=== PATIENT | male | born 1945 | race Caucasian/White ===

== ENCOUNTER 2019-06-06 15:40 | Emergency (ER) | payer MEDICARE, OTHER, SELFPAY ==
[2019-06-06 16:00] VITALS: BP 135/67; PULSE 56; RESP 18; TEMP 36.2; O2SAT 98; BMI 25.8
[2019-06-06] MEDS: DOXYCYCLINE HYCLATE 100 MG TABLET PO (18:06)
[2019-06-06 18:07] VITALS: PULSE 60; RESP 16; O2SAT 97
[2019-06-06] MEDS: TRAMADOL 50 MG PREPACK 1 BOTTLE MISC (18:07)
--- NOTE | 2019-06-06 19:22 | ED_ITS ---
HPI - Wound/Laceration General Chief Complaint: Wound/Laceration Stated Complaint: laceration to left hand Time Seen by Provider: 06/06/19 17:52 Source: patient Mode of arrival: ambulatory Limitations: no limitations History of Present Illness HPI narrative: 73-year-old male comes emergency department with complaint of puncture wound to his left hand. Patient states he was on the 03 of June, he was picking up a glass and had a puncture wound to the palm of his hand. He states that he let it bleed a bunch. He did not wash it right away but has been washing his hands and taking showers daily since. He states he put a little bit of liquid Band-Aid on it but it opened back up. It had a little bit of clearish drainage. He states he has had a little bit increased pain he feels like it is little bit red and that it might be infected. No fevers, no other symptoms. He can flex straighten his hand without issue. Patient states his tetanus is up-to-date as of 2 years ago. He denies any other injuries. Related Data Previous Rx's Medication Instructions Recorded doxycycline hyclate 100 mg PO BID #20 cap 06/06/19 Allergies Allergy/AdvReac Type Severity Reaction Status Date / Time NSAIDS (Non-Steroidal AdvReac Verified 06/06/19 16:06 Anti-Inflamma Imidazole Antifungal Allergy Unknown Uncoded 06/06/19 16:05 Metronidazole Allergy Unknown Uncoded 06/06/19 16:05 Penicillin Allergy Unknown Uncoded 06/06/19 16:05 Review of Systems Review of Systems ROS Unobtainable: All systems reviewed & are unremarkable except as noted in HPI and below Constitutional Denies chills, Denies fever(s), Denies lethargy and Denies weakness Musculoskeletal Denies tingling and Reports other (Cut to left hand) Integumentary/Breasts Reports erythema, Denies unusual bruising and Reports wounds Neurologic Denies focal weakness, Denies tingling, Denies paresthesias and Denies weakness [facility] Social History Smoking Status: Former smoker Social History Smoking Status: Former smoker Exam Narrative Exam Narrative: GENERAL: Alert and oriented x three, well-nourished, well- appearing male in no acute distress. HEENT: Head normocephalic, atraumatic, EOMI, pupils reactive, face symmetric, moist mucous membranes NECK: Supple, full range of motion EXTREMITIES: Normal range of motion, no clubbing or edema. Neurovascularly intact. Patient has a puncture wound that is about a 0.5 cm on the palm of his hand over the proximal palm just adjacent to the 2nd finger. There is some slight erythema, there is no drainage. Area is very slightly tender to touch. He has full range of motion of his finger, no sausage digit. No issues with flexion or extension. He has full strength. 2+ radial pulse. Cap refills less than 2 seconds. Laceration is very superficial no evidence of foreign body. NEUROLOGICAL: Cranial nerves II through XII grossly intact. Moving all extremities SKIN: Warm, dry, no petechiae, no rashes or lesions other than above Initial Vital Signs Initial Vital Signs: Vital Signs Temperature 97.1 F L 06/06/19 16:00 Pulse Rate 56 L 06/06/19 16:00 Respiratory Rate 18 06/06/19 16:00 Blood Pressure 135/67 06/06/19 16:00 Pulse Oximetry 98 06/06/19 16:00 Course Orders Ordered: Discontinued Medications Doxycycline Hyclate (Vibramycin) 100 mg PO NOW ONE Stop: 06/06/19 17:53 Last Admin: 06/06/19 18:06 Dose: 100 mg Tramadol HCl (Ultram 50mg Prepack) 1 bottle MISC SEEINSTR ONE Stop: 06/06/19 17:54 Last Admin: 06/06/19 18:07 Dose: 1 bottle Vital Signs - 8 hr 06/06/19 16:00 06/06/19 18:07 Temperature 97.1 F L Pulse Rate 56 L 60 Respiratory Rate 18 16 Blood Pressure 135/67 Pulse Oximetry 98 97 Discharge Plan Departure Patient Disposition: Home Clinical Impression: Puncture wound of hand Discharge Date/Time: 06/06/19 18:11 Interventions: ED Discharge Assessment Last Done: 06/06/19 18:07 Instructions: DI for Puncture Wound Activity Restrictions/Additional Instructions: Follow-up with your physician in the next 3-5 days if your symptoms are not improving. Take antibiotics daily until they are gone. You may continue with Tylenol and/or ibuprofen as needed for pain. You may take Ultram once every 4 hours as needed, this medication can make you sleepy do not drive, perform hazards activities or make any major decisions while taking it. Wound Care: Keep wound(s) clean and dry. Wash daily with soap and water only. Do not use over the counter products (alcohol or peroxide)on the wounds unless instructed by a physician. If wound condition worsens (increased/expanding redness, developing fluid blisters, or worsening pain), either contact your doctor for an urgent re- assessment , or return to the Emergency Department. Return to the Emergency Department for any new or worsening symptoms. Return if fever greater than 100.4 Fahrenheit, increased swelling, increasing pain or worsening symptoms such as increased discharge or spreading redness. If you are unable to flex or straighten her finger, if her fingers become very swollen or you have other new swelling, redness of the hand or other new or concerning changes. Prescriptions: New doxycycline hyclate 100 mg capsule 100 mg PO BID Qty: 20 RF: 0 Referrals: Koby Pittman MD [Primary Care Provider] -
== END 2019-06-06 18:11 | disposition home or self-care (01) ==
PROVIDERS: Emergency Provider Emergency Medicine; PCP Family Medicine
DX: S61.412A Laceration without foreign body of left hand, initial encounter (principal); W25.XXXA Contact with sharp glass, initial encounter
CPT/HCPCS: 99283

== ENCOUNTER → 2019-11-03 10:39 | Outpatient (CLI) | payer MEDICARE, OTHER, SELFPAY ==
[2019-11-03 11:44] LABS: Blood Urea Nitrogen 19 mg/dL (9-20); Calcium 9.4 mg/dL (8.4-10.2); Carbon Dioxide 26 mmol/L (22-32); Chloride 104 mmol/L (98-107); Cholesterol 98 mg/dL (140-199); Estimated Glomerular Filt Rate > 60.0 mL/min (>60); Glucose 96 mg/dL (80-110); HDL Cholesterol 34 mg/dL (40-60); HEMOLYSIS < 15 (0-50); LDL Cholesterol Calculated 20 mg/dL (<100); Potassium 4.6 mmol/L (3.4-5.1); Sodium 139 mmol/L (137-145); Triglycerides 218 mg/dL (35-150)
[2019-11-03 11:47] LABS: C-Reactive Protein Quant < 0.5 mg/dL (<1.0)
[2019-11-03 11:55] LABS: Vitamin D 25 Hydroxy (D3) 32.8 ng/mL (30.0-100.0)
== END ==
PROVIDERS: PCP Family Medicine; Visit Provider Student in an Organized Health Care Education/Training Program
DX: E78.2 Mixed hyperlipidemia (principal); E55.9 Vitamin D deficiency, unspecified; K50.90 Crohn's disease, unspecified, without complications; E26.9 Hyperaldosteronism, unspecified; Z87.448 Personal history of other diseases of urinary system
CPT/HCPCS: 36415; 80048; 80061; 82306; 86140

== ENCOUNTER → 2020-01-25 11:02 | Outpatient (CLI) | payer MEDICARE, OTHER, SELFPAY ==
[2020-01-25 12:45] LABS: Cholesterol 109 mg/dL (140-199); HDL Cholesterol 34 mg/dL (40-60); LDL Cholesterol Calculated 21 mg/dL (<100); Triglycerides 269 mg/dL (35-150)
== END ==
PROVIDERS: PCP Student in an Organized Health Care Education/Training Program; Referring Provider Student in an Organized Health Care Education/Training Program; Visit Provider Student in an Organized Health Care Education/Training Program
DX: E78.2 Mixed hyperlipidemia (principal)
CPT/HCPCS: 36415; 80061

== ENCOUNTER → 2020-03-23 11:42 | Outpatient (CLI) | payer MEDICARE, OTHER, SELFPAY ==
[2020-03-23 13:19] LABS: BUN Creatinine Ratio 17.7 (6-22); Blood Urea Nitrogen 20 mg/dL (9-20); Calcium 9.3 mg/dL (8.4-10.2); Carbon Dioxide 22 mmol/L (22-32); Chloride 108 mmol/L (98-107); Cholesterol 86 mg/dL (140-199); Estimated Glomerular Filt Rate > 60.0 mL/min (>60); Glucose 97 mg/dL (80-110); HDL Cholesterol 31 mg/dL (40-60); HEMOLYSIS < 15 (0-50); LDL Cholesterol Calculated 18 mg/dL (<100); Potassium 4.5 mmol/L (3.4-5.1); Sodium 139 mmol/L (137-145); Triglycerides 185 mg/dL (35-150)
== END ==
PROVIDERS: PCP Student in an Organized Health Care Education/Training Program; Referring Provider Student in an Organized Health Care Education/Training Program; Visit Provider Student in an Organized Health Care Education/Training Program
DX: I10 Essential (primary) hypertension (principal); E78.2 Mixed hyperlipidemia
CPT/HCPCS: 36415; 80048; 80061

== ENCOUNTER → 2021-02-14 09:37 | Outpatient (CLI) | payer MEDICARE, OTHER, SELFPAY ==
[2021-02-14 10:26] LABS: Hematocrit 41.1 % (41-53); Hemoglobin 13.9 g/dL (13.5-17.5); Mean Corpuscular HGB Conc 33.9 % (30-36); Mean Corpuscular Hemoglobin 32.8 PG (26-34); Mean Corpuscular Volume 96.7 fL (80-100); Platelet Count 151 X10^3/uL (150-400); Red Blood Cell Count 4.24 X10^6/uL (4.5-5.9); Red Cell Distribution Width 13.7 % (11.6-14.8); White Blood Cell Count 6.4 X10^3/uL (4.5-11.0)
[2021-02-14 10:44] LABS: BUN Creatinine Ratio 21.8 (6-22); Blood Urea Nitrogen 26 mg/dL (9-20); Calcium 9.4 mg/dL (8.4-10.2); Carbon Dioxide 25 mmol/L (22-32); Chloride 105 mmol/L (98-107); Estimated Glomerular Filt Rate 59.3 mL/min (>60); Glucose 105 mg/dL (80-110); HEMOLYSIS < 15 (0-50); Sodium 137 mmol/L (137-145)
[2021-02-14 10:46] LABS: Potassium 5.4 mmol/L (3.4-5.1)
[2021-02-14 11:08] LABS: HEMOLYSIS < 15 (0-50); Iron 93 ug/dL (49-181)
[2021-02-14 11:19] LABS: Percent Iron Saturation 26 % (20-50); Total Iron Binding Capacity 358 ug/dL (261-462); Transferrin 294 mg/dL (206-381)
[2021-02-14 11:20] LABS: Ferritin 69 ng/mL (18-464)
[2021-02-14 11:34] LABS: Vitamin B12 544 pg/mL (239-931)
== END ==
PROVIDERS: PCP Student in an Organized Health Care Education/Training Program; Referring Provider Student in an Organized Health Care Education/Training Program; Visit Provider Student in an Organized Health Care Education/Training Program
DX: E55.9 Vitamin D deficiency, unspecified (principal); K50.90 Crohn's disease, unspecified, without complications; I10 Essential (primary) hypertension
CPT/HCPCS: 36415; 80048; 82306; 82607; 82728; 83540; 83550; 85027

== ENCOUNTER → 2021-03-02 08:54 | Outpatient (CLI) | payer MEDICARE, OTHER, SELFPAY ==
--- NOTE | 2021-03-02 08:56 | DI.US.S_ITS ---
PROCEDURE: US ABD AORTA ANEURYSM SCREEN INDICATIONS: AAA SCREEN TECHNIQUE: Real time scanning was performed of the aorta and iliac arteries, with image documentation. COMPARISON: MR, L-SPINE WITHOUT CONTRAST, 06/10/2012, 19:30. FINDINGS: Aorta: Proximal aortic diameter measures 2.3 cm. Mid-aorta measures 2.1 cm. Distal aortic diameter is 1.7 cm. Iliac arteries: Right common iliac artery measures 1.1 cm. Left common iliac artery measures 0.8 cm. IMPRESSION: No abdominal aortic aneurysm. Dictated by: Adeel Whitley M.D. on 03/02/2021 at 10:16 Approved by: Adeel Whitley M.D. on 03/02/2021 at 10:18
== END ==
PROVIDERS: PCP Student in an Organized Health Care Education/Training Program; Referring Provider Student in an Organized Health Care Education/Training Program; Visit Provider Student in an Organized Health Care Education/Training Program
DX: Z13.6 Encounter for screening for cardiovascular disorders (principal); Z87.891 Personal history of nicotine dependence
CPT/HCPCS: 76706

== ENCOUNTER → 2021-03-23 09:22 | Outpatient (CLI) | payer MEDICARE, OTHER, SELFPAY ==
[2021-03-23 10:39] LABS: BUN Creatinine Ratio 19.8 (6-22); Blood Urea Nitrogen 21 mg/dL (9-20); Calcium 9.4 mg/dL (8.4-10.2); Carbon Dioxide 25 mmol/L (22-32); Chloride 107 mmol/L (98-107); Estimated Glomerular Filt Rate > 60.0 mL/min (>60); Glucose 95 mg/dL (80-110); HEMOLYSIS < 15 (0-50); Potassium 4.5 mmol/L (3.4-5.1); Sodium 140 mmol/L (137-145)
== END ==
PROVIDERS: PCP Student in an Organized Health Care Education/Training Program; Referring Provider Student in an Organized Health Care Education/Training Program; Visit Provider Student in an Organized Health Care Education/Training Program
DX: E87.5 Hyperkalemia (principal); I10 Essential (primary) hypertension; T50.905A Adverse effect of unspecified drugs, medicaments and biological substances, initial encounter
CPT/HCPCS: 36415; 80048

== ENCOUNTER → 2021-05-15 09:53 | Outpatient (CLI) | payer MEDICARE, OTHER, SELFPAY ==
[2021-05-15 11:00] LABS: BUN Creatinine Ratio 19.5 (6-22); Blood Urea Nitrogen 24 mg/dL (9-20); Calcium 9.4 mg/dL (8.4-10.2); Carbon Dioxide 24 mmol/L (22-32); Chloride 105 mmol/L (98-107); Estimated Glomerular Filt Rate 57.1 mL/min (>60); Glucose 98 mg/dL (80-110); HEMOLYSIS < 15 (0-50); Potassium 4.6 mmol/L (3.4-5.1); Sodium 136 mmol/L (137-145)
== END ==
PROVIDERS: PCP Student in an Organized Health Care Education/Training Program; Referring Provider Student in an Organized Health Care Education/Training Program; Visit Provider Student in an Organized Health Care Education/Training Program
DX: E87.5 Hyperkalemia (principal); E55.9 Vitamin D deficiency, unspecified; T50.905A Adverse effect of unspecified drugs, medicaments and biological substances, initial encounter
CPT/HCPCS: 36415; 80048; 82306

== ENCOUNTER → 2021-06-19 10:04 | Outpatient (CLI) | payer MEDICARE, OTHER, SELFPAY ==
[2021-06-19 11:35] LABS: Hemoglobin A1C% w Est Avg Glu 5.3 % (4.0-6.0)
[2021-06-19 15:26] LABS: Creatinine Urine Random 182.5 mg/dL
[2021-06-19 15:28] LABS: Microalbumi Creatinin Ratio Ur 3.2 ug/mg CR (<30); Microalbumin Urine Random 0.6 mg/dL (0-1.6)
== END ==
PROVIDERS: PCP Student in an Organized Health Care Education/Training Program; Referring Provider Student in an Organized Health Care Education/Training Program; Visit Provider Student in an Organized Health Care Education/Training Program
DX: I10 Essential (primary) hypertension (principal); R73.9 Hyperglycemia, unspecified
CPT/HCPCS: 36415; 82043; 82570; 83036

== ENCOUNTER → 2022-01-11 11:43 | Outpatient (CLI) | payer MEDICARE, OTHER, SELFPAY ==
--- NOTE | 2022-01-11 11:44 | DI.MRI.S_ITS ---
PROCEDURE: MR LUMBAR SPINE WO CON INDICATIONS: Chronic mid to low back pain TECHNIQUE: Noncontrast sagittal T1 spin echo and T2 fast echo, sagittal STIR, axial T1 and T2 fast spin echo through the lumbar spine. In cases with scoliosis, additional coronal T2 fast spin echo may be performed. COMPARISON: MR, L-SPINE WITHOUT CONTRAST, 06/10/2012, 19:30. FINDINGS: Image quality: Excellent. Alignment and Curvature: There is normal bony alignment. Bone Marrow: Mild Modic type 2 reactive endplate changes noted adjacent to the L4-L5 and L5-S1 discs.. No acute vertebral body compression fractures. Spinal Cord: Conus medullaris terminates at the L2 level. Visualized cord demonstrates normal signal and size. Paraspinous Soft Tissues: No paravertebral masses. T12-L1: Slight loss of disc signal. No central stenosis. No neural foraminal narrowing. No neural compression. L1-L2: Slight loss of disc signal. No central stenosis. No neural foraminal narrowing. No neural compression. L2-L3: Slight loss of disc signal. Mild, diffuse disc bulge. No central stenosis. Mild bilateral neural foraminal narrowing. No neural compression. L3-L4: Loss of disc signal. Mild, diffuse disc bulge. Mild bilateral facet hypertrophy. Mild to moderate narrowing of the central canal. Mild to moderate bilateral neural foraminal narrowing. No neural compression. Fissure noted in the posterior annulus. L4-L5: Loss of disc signal and height. Mild, diffuse disc bulge. Moderate bilateral facet hypertrophy. Moderate narrowing of the central canal. Moderate to severe right and moderate left neural foraminal narrowing with slight compression of the exiting right L4 nerve root. L5-S1: Loss of disc signal and height. Mild, diffuse disc bulge. Mild right and moderate left facet hypertrophy. Mild to moderate narrowing of the central canal. Moderate right and severe left neural foraminal narrowing with compression of the exiting left L5 nerve root. IMPRESSION: 1. Multilevel degenerative disc disease. 2. Multilevel facet arthropathy. 3. No severe central canal narrowing. 4. Severe left L5-S1 neural foraminal narrowing with marked compression of the exiting left L5 nerve root. Moderate to severe right L4-L5 neural foraminal narrowing with slight compression of the exiting right L4 nerve root. Dictated by: Camilla Sesay MD, PhD on 01/11/2022 at 13:48 Approved by: Camilla Sesay MD, PhD on 01/11/2022 at 14:29
--- NOTE | 2022-01-11 11:44 | DI.MRI.S_ITS ---
PROCEDURE: MR THORACIC SPINE WO CON INDICATIONS: Chronic mid to low back pain TECHNIQUE: Noncontrast sagittal T1 spine echo and T2 fast spin echo, sagittal STIR, axial T1 and T2 fast spin echo through the thoracic spine. COMPARISON: None. FINDINGS: Image quality: Degraded by patient motion artifact. Alignment and Curvature: There is normal bony alignment. Bone Marrow: Large Schmorl's node noted in the inferior endplate of the T11 vertebral body. Mild Modic type 2 reactive endplate changes noted adjacent to the T7-T8, T8-T9 and T9-T10 discs. Benign, intraosseous hemangioma is noted in the T4 and T9 vertebral bodies. No acute vertebral body compression fractures. Spinal Cord: Visualized spinal cord is normal in size and signal. Paraspinous Soft Tissues: No paravertebral masses. Miscellaneous: Loss of disc signal and height noted in the T6-T7, T7-T8, T8-T9, T9-T10 and T10-T11 disc. Loss of disc signal noted in the T1-T2, T2-T3, T3-T4, T4-T5 , T5-T6, and T11-T12 discs. Mild facet hypertrophy noted throughout the thoracic spine. No severe central canal narrowing. No severe neural foraminal narrowing. No neural compression. IMPRESSION: 1. Multilevel degenerative disc disease. 2. Multilevel facet arthropathy. 3. No severe central canal narrowing. 4. No severe neural foraminal narrowing. 5. No neural compression. 6. No vertebral body compression fracture. Dictated by: Camilla Sesay MD, PhD on 01/11/2022 at 13:39 Approved by: Camilla Sesay MD, PhD on 01/11/2022 at 13:44
== END ==
PROVIDERS: PCP Student in an Organized Health Care Education/Training Program; Referring Provider Student in an Organized Health Care Education/Training Program; Visit Provider Student in an Organized Health Care Education/Training Program
DX: M47.816 Spondylosis without myelopathy or radiculopathy, lumbar region (principal); M47.817 Spondylosis without myelopathy or radiculopathy, lumbosacral region; M47.814 Spondylosis without myelopathy or radiculopathy, thoracic region; M51.34 Other intervertebral disc degeneration, thoracic region; M51.36 Other intervertebral disc degeneration, lumbar region; M51.37 Other intervertebral disc degeneration, lumbosacral region; M48.061 Spinal stenosis, lumbar region without neurogenic claudication; M48.07 Spinal stenosis, lumbosacral region; M53.86 Other specified dorsopathies, lumbar region; G89.29 Other chronic pain
CPT/HCPCS: 72146; 72148

== ENCOUNTER → 2022-02-28 11:09 | Outpatient (CLI) | payer MEDICARE, OTHER, SELFPAY ==
[2022-02-28 11:37] LABS: BUN Creatinine Ratio 20.3 (6-22); Blood Urea Nitrogen 25 mg/dL (9-20); Calcium 8.8 mg/dL (8.4-10.2); Carbon Dioxide 24 mmol/L (22-32); Chloride 106 mmol/L (98-107); Estimated Glomerular Filt Rate 56.9 mL/min (>60); Glucose 105 mg/dL (80-110); HEMOLYSIS < 15 (0-50); Potassium 4.9 mmol/L (3.4-5.1); Sodium 137 mmol/L (137-145)
== END ==
PROVIDERS: PCP Student in an Organized Health Care Education/Training Program; Referring Provider Student in an Organized Health Care Education/Training Program; Visit Provider Student in an Organized Health Care Education/Training Program
DX: I10 Essential (primary) hypertension (principal)
CPT/HCPCS: 36415; 80048

== ENCOUNTER → 2022-07-29 11:36 | Outpatient (CLI) | payer MEDICARE, OTHER, SELFPAY | PROVIDERS: PCP Student in an Organized Health Care Education/Training Program; Visit Provider Student in an Organized Health Care Education/Training Program | DX: J02.9 Acute pharyngitis, unspecified (principal) | CPT/HCPCS: 87070; 87077 ==

== ENCOUNTER → 2023-03-10 08:23 | Outpatient (CLI) | payer MEDICARE, OTHER, SELFPAY ==
[2023-03-10 08:58] LABS: Add Manual Diff / Slide Review NO; Basophils Absolute Auto 0 /uL (0-100); Basophils Percent Auto 0.3 % (0-2); Eosinophils Absolute Auto 200 /uL (0-450); Eosinophils Percent Auto 2.1 % (2-4); Hematocrit 39.9 % (41-53); Hemoglobin 13.8 g/dL (13.5-17.5); Lymphocytes Absolute Auto 1600 /uL (1100-4500); Lymphocytes Percent Auto 21.3 % (25-40); Mean Corpuscular HGB Conc 34.5 % (30-36); Mean Corpuscular Hemoglobin 32.7 PG (26-34); Mean Corpuscular Volume 94.8 fL (80-100); Monocytes Absolute Auto 700 /uL (0-900); Neutrophils Absolute Auto 5200 /uL (1500-7000); Neutrophils Percent Auto 67.3 % (50-75); Platelet Count 148 X10^3/uL (150-400); Red Blood Cell Count 4.21 X10^6/uL (4.5-5.9); Red Cell Distribution Width 13.9 % (11.6-14.8); White Blood Cell Count 7.7 X10^3/uL (4.5-11.0)
[2023-03-10 09:09] LABS: Alanine Aminotransferase 31 IU/L (<50); Albumin 4.2 g/dL (3.5-5.0); Albumin Globulin Ratio 1.8 (1.0-2.8); Alkaline Phosphatase 64 U/L (38-126); Aspartate Aminotransferase 26 IU/L (17-59); BUN Creatinine Ratio 20.6 (6-22); Bilirubin Total 0.7 mg/dL (0.2-1.3); Blood Urea Nitrogen 28 mg/dL (9-20); Calcium 8.9 mg/dL (8.4-10.2); Carbon Dioxide 24 mmol/L (22-32); Chloride 104 mmol/L (98-107); Cholesterol 100 mg/dL (140-199); Estimated Glomerular Filt Rate 53 mL/min (>60); Globulin 2.4 g/dL (1.7-4.1); Glucose 100 mg/dL (80-110); HDL Cholesterol 39 mg/dL (40-60); HEMOLYSIS < 15 (0-50); LDL Cholesterol Calculated 10 mg/dL (<100); Potassium 4.6 mmol/L (3.4-5.1); Sodium 137 mmol/L (137-145); Total Protein 6.6 g/dL (6.3-8.2); Triglycerides 255 mg/dL (35-150)
== END ==
PROVIDERS: PCP Student in an Organized Health Care Education/Training Program; Referring Provider Student in an Organized Health Care Education/Training Program; Visit Provider Student in an Organized Health Care Education/Training Program
DX: E87.5 Hyperkalemia (principal); I10 Essential (primary) hypertension; E26.9 Hyperaldosteronism, unspecified; T50.905A Adverse effect of unspecified drugs, medicaments and biological substances, initial encounter; Z79.899 Other long term (current) drug therapy
CPT/HCPCS: 36415; 80053; 80061; 85025

== ENCOUNTER → 2023-03-21 18:32 | Outpatient (CLI) | payer MEDICARE, OTHER, SELFPAY ==
--- NOTE | 2023-03-21 18:34 | DI.MRI.S_ITS ---
PROCEDURE: MR THORACIC SPINE WO CON INDICATIONS: chronic mid to low back pain TECHNIQUE: Noncontrast sagittal T1 spine echo and T2 fast spin echo, sagittal STIR, and T2 fast spin echo through the thoracic spine. COMPARISON: [facility], , MR THORACIC SPINE WO CON, 01/11/2022, 12:22. FINDINGS: Image quality: Excellent. Alignment and Curvature: There is normal bony alignment. Bone Marrow: Marrow is of normal overall signal. Inferior endplate Schmorl's node at T11 is present. Scattered areas predominantly Modic 2 changes are present within the lower lumbar spine from T7-8 through T9-10. Stable appearance of hemangiomas are present at T4 and T9. No acute vertebral body compression fractures. Spinal Cord: Visualized spinal cord is normal in size and signal. Paraspinous Soft Tissues: No paravertebral masses. Partially visualized right renal T2 hyperintensity is present suggestive of simple cyst. Miscellaneous: On axial images, no severe spinal stenosis or severe foraminal narrowing. Minimal scattered areas of thecal sac effacement are present without change. Multilevel disc desiccation is present. Minimal disc bulge is present at T7-8. Multilevel facet hypertrophy is present. IMPRESSION: Stable interval exam demonstrating predominantly multilevel disc desiccation. No significant spinal stenosis or foraminal narrowing, stable compared to prior exam. Dictated by: Isela Christianson M.D. on 03/24/2023 at 10:25 Approved by: Isela Christianson M.D. on 03/24/2023 at 10:29
--- NOTE | 2023-03-21 18:34 | DI.MRI.S_ITS ---
PROCEDURE: MR LUMBAR SPINE WO CON INDICATIONS: chronic mid to low back pain TECHNIQUE: Noncontrast sagittal T1 spin echo and T2 fast echo, sagittal STIR, and T2 fast spin echo through the lumbar spine. In cases with scoliosis, additional coronal T2 fast spin echo may be performed. COMPARISON: [facility], MR, MR LUMBAR SPINE WO CON, 01/11/2022, 12:38. FINDINGS: Image quality: Excellent. Alignment and Curvature: There is normal bony alignment. Bone Marrow: Marrow is of normal overall signal. Modic 2 changes are present at L3-4 and L4-5, with Modic 1 changes at L5-S1. No acute vertebral body compression fractures. Spinal Cord: Conus medullaris terminates at the L2 level. Visualized cord demonstrates normal signal and size. Paraspinous Soft Tissues: No paravertebral masses. Increased T2 signal is present within the right kidney suggestive of simple cyst and unchanged. Discs: Severe desiccation is present at L5-S1, moderate throughout the remainder of the lumbar spine. L1-L2: Minimal disc bulge without spinal stenosis or foraminal narrowing. No interval change. L2-L3: Mild disc bulge without spinal stenosis. Mild bilateral foraminal narrowing with facet and ligamentum flavum hypertrophy. No interval change. L3-L4: Mild disc bulge with [id number] spinal stenosis. [id number] bilateral foraminal narrowing with facet and ligamentum flavum hypertrophy. No interval change. L4-L5: Mild disc bulge with moderate spinal stenosis. Moderate to severe right and moderate left foraminal narrowing is present. As previously noted, there is slight compression of the exiting right L4 nerve root. Facet and ligamentum flavum hypertrophy are present. L5-S1: Mild disc bulge with [id number] spinal stenosis. Moderate to severe left foraminal narrowing is present with compression of the exiting left L5 nerve root, unchanged. Facet hypertrophy is present. IMPRESSION: Stable interval exam with foraminal narrowing and mild compression of the exiting nerve roots remaining most severe at L4-5 and L5-S1. Spinal stenosis is most prominent L4-5 secondary to disc bulge with contributing effect of facet/ligamentum flavum arthropathy. Dictated by: Isela Christianson M.D. on 03/24/2023 at 10:30 Approved by: Isela Christianson M.D. on 03/24/2023 at 10:57
== END ==
PROVIDERS: PCP Student in an Organized Health Care Education/Training Program; Referring Provider Student in an Organized Health Care Education/Training Program; Visit Provider Student in an Organized Health Care Education/Training Program
DX: M47.816 Spondylosis without myelopathy or radiculopathy, lumbar region (principal); M51.36 Other intervertebral disc degeneration, lumbar region; M48.061 Spinal stenosis, lumbar region without neurogenic claudication; M48.07 Spinal stenosis, lumbosacral region; M54.6 Pain in thoracic spine; M53.86 Other specified dorsopathies, lumbar region; G89.29 Other chronic pain
CPT/HCPCS: 72146; 72148

== ENCOUNTER → 2023-06-17 16:55 | Outpatient (CLI) | payer MEDICARE, OTHER, SELFPAY ==
[2023-06-17 19:31] LABS: Alanine Aminotransferase 40 IU/L (<50); Albumin 4.2 g/dL (3.5-5.0); Albumin Globulin Ratio 1.6 (1.0-2.8); Alkaline Phosphatase 71 U/L (38-126); Aspartate Aminotransferase 32 IU/L (17-59); Bilirubin Total 0.5 mg/dL (0.2-1.3); Blood Urea Nitrogen 26 mg/dL (9-20); Carbon Dioxide 24 mmol/L (22-32); Chloride 104 mmol/L (98-107); Estimated Glomerular Filt Rate > 60 mL/min (>60); Globulin 2.7 g/dL (1.7-4.1); Glucose 98 mg/dL (80-110); HEMOLYSIS < 15 (0-50); Potassium 4.6 mmol/L (3.4-5.1); Sodium 137 mmol/L (137-145); Total Protein 6.9 g/dL (6.3-8.2)
== END ==
PROVIDERS: PCP Student in an Organized Health Care Education/Training Program; Referring Provider Pediatrics; Visit Provider Pediatrics
DX: E78.2 Mixed hyperlipidemia (principal); I10 Essential (primary) hypertension; I25.10 Atherosclerotic heart disease of native coronary artery without angina pectoris
CPT/HCPCS: 36415; 80053

== ENCOUNTER → 2024-01-01 08:50 | Outpatient (CLI) | payer MEDICARE, OTHER, SELFPAY ==
[2024-01-01 10:04] LABS: Hemoglobin 13.2 g/dL (13.5-17.5); Mean Corpuscular HGB Conc 33.8 % (30-36); Mean Corpuscular Hemoglobin 31.6 PG (26-34); Mean Corpuscular Volume 93.4 fL (80-100); Platelet Count 118 X10^3/uL (150-400); Red Blood Cell Count 4.18 X10^6/uL (4.5-5.9); Red Cell Distribution Width 14.9 % (11.6-14.8); White Blood Cell Count 9.6 X10^3/uL (4.5-11.0)
[2024-01-01 10:20] LABS: Alanine Aminotransferase 22 IU/L (<50); Albumin 3.9 g/dL (3.5-5.0); Albumin Globulin Ratio 1.6 (1.0-2.8); Alkaline Phosphatase 58 U/L (38-126); Aspartate Aminotransferase 20 IU/L (17-59); BUN Creatinine Ratio 22.9 (6-22); Bilirubin Total 0.6 mg/dL (0.2-1.3); Blood Urea Nitrogen 30 mg/dL (9-20); Calcium 9.1 mg/dL (8.4-10.2); Carbon Dioxide 21 mmol/L (22-32); Chloride 109 mmol/L (98-107); Cholesterol 88 mg/dL (140-199); Estimated Glomerular Filt Rate 55 mL/min (>60); Globulin 2.5 g/dL (1.7-4.1); Glucose 116 mg/dL (80-110); HDL Cholesterol 41 mg/dL (40-60); HEMOLYSIS < 15 (0-50); LDL Cholesterol Calculated 12 mg/dL (<100); Potassium 4.7 mmol/L (3.4-5.1); Sodium 139 mmol/L (137-145); Total Protein 6.4 g/dL (6.3-8.2); Triglycerides 175 mg/dL (35-150)
[2024-01-01 10:43] LABS: TSH w/ Reflex to FT4 0.53 uIU/mL (0.47-4.68)
[2024-01-01 10:50] LABS: Prostate Specific Antigen 2.13 ng/mL (0.10-4.00)
[2024-01-01 16:31] LABS: Neutrophils Absolute Manual 7488 /uL (3000-5900); RBC Morphology Normal Morphology; Total Cells Counted 100
== END ==
PROVIDERS: PCP Internal Medicine; Referring Provider Internal Medicine; Visit Provider Internal Medicine
DX: I10 Essential (primary) hypertension (principal); N40.1 Benign prostatic hyperplasia with lower urinary tract symptoms; E78.2 Mixed hyperlipidemia; N13.8 Other obstructive and reflux uropathy
CPT/HCPCS: 36415; 80053; 80061; 84153; 84443; 85025

== ENCOUNTER → 2024-01-27 08:28 | Outpatient (CLI) | payer MEDICARE, OTHER, SELFPAY ==
--- NOTE | 2024-01-27 08:30 | DI.CT.S_ITS ---
PROCEDURE: CT SINUS SCREEN WO CON INDICATIONS: CHRONIC PANSINUSITIS/NASAL POLYPOSIS/NASAL OBST TECHNIQUE: Noncontrast 3.0 mm axial images acquired from the frontal sinuses to the mid-sella, with coronal and sagittal reformats. For radiation dose reduction, the following was used: automated exposure control, adjustment of mA and/or kV according to patient size. COMPARISON: None. FINDINGS: Image quality: Excellent. Maxillary Sinuses: No bony remodeling or destruction. Mild scattered mucosal thickening can be seen within the maxillary sinuses. There are nonnative ostia seen along the medial mata of the maxillary sinuses, as on series 4, image 23. Ethmoid Air Cells: No bony remodeling or destruction. Sinuses are clear. Sphenoid Sinuses: No bony remodeling or destruction. Sinuses are clear. Frontal Sinuses: No bony remodeling or destruction. Sinuses are clear. Ostiomeatal Complexes: The ostiomeatal complexes are patent, yet they are constitutionally narrowed, with bilateral Iwona cells. Miscellaneous: Visualized intra-orbital contents are normal. There are bilateral yessi bullosa. There is minimal leftward nasal septal deviation. Apparent nasal polyps can be seen anteriorly and superiorly, left larger than right. IMPRESSION: There is mild mucosal thickening within the maxillary sinuses. Nonnative ostia can be seen along the medial mata of the maxillary sinuses. Please correlate with prior history. The ostiomeatal complexes are patent, yet they are constitutionally narrowed, with bilateral Iwona cells. Apparent nasal polyps can be seen superiorly and anteriorly. Please correlate with known patient history and physical examination findings. Dictated by: Simeon Phillip M.D. on 01/27/2024 at 9:59 Approved by: Simeon Phillip M.D. on 01/27/2024 at 10:01
== END ==
LOC: CT 08:29
PROVIDERS: PCP Internal Medicine; Referring Provider Otolaryngology; Visit Provider Otolaryngology
DX: J32.4 Chronic pansinusitis (principal); J33.9 Nasal polyp, unspecified; J34.89 Other specified disorders of nose and nasal sinuses
CPT/HCPCS: 70486

== ENCOUNTER → 2024-04-20 10:49 | Outpatient (CLI) | payer MEDICARE, OTHER, SELFPAY ==
[2024-04-20 13:10] LABS: BUN Creatinine Ratio 20.2 (6-22); Blood Urea Nitrogen 25 mg/dL (9-20); Calcium 8.6 mg/dL (8.4-10.2); Carbon Dioxide 25 mmol/L (22-32); Chloride 111 mmol/L (98-107); Estimated Glomerular Filt Rate 59 mL/min (>60); Glucose 98 mg/dL (80-110); HEMOLYSIS < 15 (0-50); Potassium 4.8 mmol/L (3.4-5.1); Sodium 140 mmol/L (137-145)
== END ==
PROVIDERS: PCP Internal Medicine; Referring Provider Internal Medicine; Visit Provider Internal Medicine
DX: I10 Essential (primary) hypertension (principal)
CPT/HCPCS: 36415; 80048

== ENCOUNTER → 2024-10-04 15:05 | Outpatient (CLI) | payer MEDICARE, OTHER, SELFPAY ==
[2024-10-04 17:12] LABS: BUN Creatinine Ratio 19.4 (6-22); Blood Urea Nitrogen 27 mg/dL (9-20); Calcium 8.6 mg/dL (8.4-10.2); Carbon Dioxide 21 mmol/L (22-32); Chloride 108 mmol/L (98-107); Cholesterol 88 mg/dL (140-199); Estimated Glomerular Filt Rate 51 mL/min (>60); Glucose 103 mg/dL (80-110); HDL Cholesterol 35 mg/dL (40-60); HEMOLYSIS < 15 (0-50); LDL Cholesterol Calculated 11 mg/dL (<100); Potassium 4.3 mmol/L (3.4-5.1); Sodium 135 mmol/L (137-145); Triglycerides 211 mg/dL (35-150)
== END ==
PROVIDERS: PCP Internal Medicine; Referring Provider Internal Medicine; Visit Provider Internal Medicine
DX: E78.2 Mixed hyperlipidemia (principal); E26.9 Hyperaldosteronism, unspecified; I10 Essential (primary) hypertension; I25.10 Atherosclerotic heart disease of native coronary artery without angina pectoris; M19.90 Unspecified osteoarthritis, unspecified site; M47.816 Spondylosis without myelopathy or radiculopathy, lumbar region; K50.919 Crohn's disease, unspecified, with unspecified complications; G25.0 Essential tremor; B00.9 Herpesviral infection, unspecified; G47.00 Insomnia, unspecified
CPT/HCPCS: 36415; 80048; 80061

== ENCOUNTER 2024-10-14 12:02 | Day surgery (SDC) | payer MEDICARE, OTHER, SELFPAY ==
[2024-10-12 08:05] VITALS: BMI 26.2
[2024-10-14] VITALS (11 sets, daily range): BP systolic 106–156; BP diastolic 53–81; PULSE 50–82; RESP 10–19; TEMP 36.2–36.5; O2SAT 94–99; BMI 26.2
[2024-10-14] MEDS: ACETAMINOPHEN 325 MG TABLET 975 MG PO (13:24)
[2024-10-14] MEDS: OXYMETAZOLINE NASAL SPRAY 30 ML 2 SPRAYS NASAL (13:25)
[2024-10-14] MEDS: LACTATED RINGERS 1,000 ML 42 ML IV (13:26)
--- NOTE | 2024-10-14 14:13 | P.OP_ITS ---
Operative Date/Time/Diagnoses Date of procedure: 10/14/24 Time of procedure: 15:26 Pre-op diagnosis: Nasal polyposis, nasal airway obstruction, yessi bullosa of middle turbinates, enlarged posterior inferior turbinates Post-op diagnosis: same Procedure & Clinicians Procedure: 1. Endoscopic excision of nasal polyps 2. Bilateral yessi bullosa excision 3. Bilateral inferior turbinate reduction via extramural cautery Same procedure as scheduled: Yes Indications: 79 Year old with the above diagnoses incompletely managed with medical therapy presents for the above procedure. Following discussion of the material risks benefits complications and alternatives, the patient elected to proceed. Surgeon: Jurgen Mason Click Yes if Unassisted: Yes Anesthesia Type: General and Local Operative Notes Findings: Pale polypoid tissue extending from the olfactory cleft bilaterally, extending just posterior to the anterior insertion of the middle turbinate bilaterally. Bilateral yessi bullosa resected. [place] posterior tips of the inferior turbinates reduced externally with suction electrocautery. Estimated Blood Loss (mL): 10 Procedure in detail: Following identification and confirmation of consent as well as preoperative Afrin nasal spray, the patient was brought to the operating room suite and placed in the supine position. General endotracheal anesthesia was administered. Temporary packing with cotton with Afrin and 4% lidocaine was performed. Following sterile prep and drape, the packing was removed. Under endoscopic guidance the posterior and anterior superior insertion of each middle turbinate was then infiltrated with additional local anesthetic via spinal needle, and cotton pledgets with 1 1000 epinephrine were placed in the middle meatus for several minutes and used intermittently throughout the case for hemostasis. Polyps extending from the olfactory cleft were resected bilaterally with the microdebrider, carefully to avoid any pressure against the skull base. Hemostasis with topical epinephrine, then perclot was applied to the area. The lateral portion of each middle turbinate was resected with the microdebrider, opening the yessi bullosa of each middle turbinate until it was entirely exposed and the turbinate was much thinner. Minimal hemostasis with suction electrocautery. The posterior inferior turbinates were edematous with mulberry shaped, reduced with suction electrocautery on a setting of 10. The procedure completed, sponge and needle counts were correct and the patient was extubated in the operating room and taken to recovery room in stable condition without known complication. Complications: none Post-operative Condition: stable Disposition: same day surgery Plan for aftercare: Nasal saline every hour while awake, begin irrigations t.i.d. tomorrow if desired. Tylenol alternating with Advil for pain control, if desired, patient requested Tylenol No. 3 if needed for breakthrough pain. Elevate head of bed, no nose blowing, no straining for 2 weeks. Follow-up in 1 week for exam.
--- NOTE | 2024-10-14 14:13 | PM.PREOP ---
Pre-operative Note Interval Note History & Physical reviewed/Exam performed by Physician: Yes Changes to H&P: No
[2024-10-14] MEDS: LIDOCAINE 1% W/EPI 20 ML INJ (14:43)
--- NOTE | 2024-10-14 14:49 | SUR.OPER ---
Supine on padded OR bed, head on pillow, arms padded and tucked at sides, legs uncrossed, safety belt at thigh, tape over blanket over lower legs.
[2024-10-14] MEDS: EPINEPHrine 1 MG/ML SUBCUT (15:13)
[2024-10-14] MEDS: OXYCODONE IR 5 MG TABLET PO ×2 (16:03→16:15)
== END 2024-10-14 17:15 | disposition home or self-care (01) ==
PROVIDERS: PCP Internal Medicine; Referring Provider Otolaryngology; Visit Provider Otolaryngology
PROC: (CPT 31231; principal; 2024-10-14 13:45)
DX: J34.89 Other specified disorders of nose and nasal sinuses (principal); J98.8 Other specified respiratory disorders; J33.9 Nasal polyp, unspecified
CPT/HCPCS: 31240; 30802; J0171; J1100; J2405; J2704; J3010

== ENCOUNTER → 2025-01-19 08:53 | Outpatient (CLI) | payer MEDICARE, OTHER, SELFPAY ==
[2025-01-19 09:30] LABS: Hematocrit 42.3 % (41-53); Hemoglobin 14.4 g/dL (13.5-17.5); Mean Corpuscular HGB Conc 33.9 % (30-36); Mean Corpuscular Hemoglobin 32.5 PG (26-34); Mean Corpuscular Volume 95.7 fL (80-100); Platelet Count 158 X10^3/uL (150-400); Red Blood Cell Count 4.42 X10^6/uL (4.5-5.9); Red Cell Distribution Width 13.9 % (11.6-14.8); White Blood Cell Count 7.8 X10^3/uL (4.5-11.0)
[2025-01-19 10:32] LABS: Aspartate Aminotransferase 34 IU/L (17-59); BUN Creatinine Ratio 20.5 (6-22); Blood Urea Nitrogen 27 mg/dL (9-20); Calcium 9.3 mg/dL (8.4-10.2); Carbon Dioxide 23 mmol/L (22-32); Chloride 108 mmol/L (98-107); Estimated Glomerular Filt Rate 54 mL/min (>60); Glucose 96 mg/dL (80-110); HEMOLYSIS < 15 (0-50); Potassium 4.7 mmol/L (3.4-5.1); Sodium 139 mmol/L (137-145)
[2025-01-19 10:45] LABS: Creatinine Urine Random 71.42 mg/dL
[2025-01-19 10:49] LABS: Microalbumin Urine Random 1.8 mg/dL (0-1.6)
[2025-01-19 11:02] LABS: Prostate Specific Antigen 3.22 ng/mL (0.10-4.00)
== END ==
PROVIDERS: PCP Internal Medicine; Referring Provider Internal Medicine; Visit Provider Internal Medicine
DX: E78.2 Mixed hyperlipidemia (principal); N40.1 Benign prostatic hyperplasia with lower urinary tract symptoms; I10 Essential (primary) hypertension; N13.8 Other obstructive and reflux uropathy; R79.89 Other specified abnormal findings of blood chemistry
CPT/HCPCS: 36415; 80048; 82043; 82570; 84153; 84450; 85027